=== PATIENT | male | born 2000 | race Caucasian/White ===

== ENCOUNTER 2021-03-11 20:54 | Emergency (ER) | payer BC ==
[~2021-03-11] VITALS: Ht 175 cm; Wt 81.0 kg
[2021-03-11 21:29] VITALS: BP 138/87
[2021-03-11] MEDS ORDERED: PRD20T PO (23:43)
[2021-03-11] MEDS ORDERED: MAGIC MOUTHWASH PO (23:43)
--- NOTE | 2021-03-11 23:44 | ED EENT ---
History of Present Illness General Chief Complaint: Oral/Throat Problems Stated Complaint: NECK PAIN Nursing Triage Note: Pt reports pressure around neck and throat and "weird bumps" on tongue for last 2 days. Pt also reports R ear pain. Source: patient History of Present Illness Date Seen by Provider: Mar 11, 2021 Time Seen by Provider: 23:19 Initial Comments PT ARRIVES VIA POV C/O PAIN UNDER RIGHT EAR AND UNDER CHIN ALSO C/O PAIN AND BUMPS TO BOTH SIDES OF TONGUE SYMPTOMS X 2 DAYS NO FEVER NO SORE THROAT NO SWELLING ANYWHERE NO PROBLEMS SWALLOWING OR TALKING--HAS BEEN EATING AND DRINKING NORMALLY NO CHANGE IN CHRONIC COUGH--STATES HE HAS ASTHMA. HAS INHALER BUT HAS NOT BEEN USING IT. DENIES SHORTNESS OF BREATH NO CHANGES IN CHRONIC "ALLERGY" SYMPTOMS--HAS NOT BEEN TAKING ANYTHING FOR ALLERGIES NO HEADACHE NO BODY ACHES NO LOSS OF TASTE OR SMELL NO NAUSEA/VOMITING/DIARRHEA NO CHANGE IN HEARING HAS NOT TAKEN ANYTHING FOR SYMPTOMS SYMPTOMS NO DIFFERENT TONIGHT HAS NOT SOUGHT CARE UNTIL TONIGHT NO HISTORY OF SIMILAR DENIES ANY NEW FOODS, DRINKS, ETC. DENIES SMOKING/CHEWING TOBACCO, DENIES ALCOHOL USE, DENIES DRUG USE HAS HAD COVID-19 VACCINE X 2 IN [place] WORKS AT [employer] IN [place] PCP: NONE--MOVED HERE A FEW MONTHS AGO FROM [place], [place] Allergies and Home Medications Home Medications Prednisone 20 Mg Tab, 40 MG PO DAILY Prescribed by: MARLENE LITTLE on 03/11/212342 [Magic Mouthwash] , 5 ML PO Q2 HRS Prescribed by: MARLENE LITTLE on 03/11/212342 Patient Home Medication List Home Medication List Reviewed: Yes Review of Systems Review of Systems Constitutional: no symptoms reported Eyes: No Symptoms Reported Ears: See HPI Nose: no symptoms reported Mouth: see HPI Throat: no symptoms reported Respiratory: no symptoms reported Cardiovascular: no symptoms reported Gastrointestinal: no symptoms reported Musculoskeletal: no symptoms reported Skin: no symptoms reported Neurological: No Symptoms Reported Hematologic/Lymphatic: No Symptoms Reported Immunological/Allergic: no symptoms reported Past Iuvactl-Tbqsyw-Pziurm Hx Patient Social History Tobacco Use?: No Smoking Status: Never a Smoker Smokeless Tobacco Frequency: Never a User Use of E-Cig and/or Vaping Jair: Never a User Substance use?: No Alcohol Use?: No Pt feels they are or have been: No Seasonal Allergies Seasonal Allergies: Yes Past Medical History Surgeries: No Respiratory: Yes Asthma Cardiac: No Neurological: No Genitourinary: No Gastrointestinal: Yes (GASTRITIS) Musculoskeletal: No Endocrine: No HEENT: No Cancer: No Psychosocial: No Integumentary: No Blood Disorders: No Physical Exam Vital Signs Vital Signs - First Documented 03/11/21 21:29 Temp 36.4 Pulse 69 Resp 18 B/P (MAP) 138/87 (104) Pulse Ox 98 O2 Delivery Room Air Height, Weight, BMI Height: '" Weight: lbs. oz. kg; 26.00 BMI Method: General Appearance: WD/WN, no apparent distress, other (DOES NOT APPEAR ILL OR TO BE IN ANY DISCOMFORT OR DISTRESS) Eyes: bilateral eye normal inspection, bilateral eye PERRL, bilateral eye EOMI Ears: bilateral ear auricle normal, bilateral ear canal normal, bilateral ear TM normal, bilateral ear other (NO MASTOID TENDERNESS OR SWELLING. ) Nose: normal inspection Mouth/Throat: No dental tenderness, No excessive drooling, No mandibular swelling, No maxillary swelling, No tongue swollen, No tonsillar swelling, No trismus, No uvula swelling, No voice changes; other (HAS SCALLOPPED TONGUE, WITH SOME MILD INFLAMMATION OF TASTE BUDS TO BILATERAL SIDES OF TONGUE. NO ABNORMALITIES OF SUBLINGUAL AREA. NO SWELLING OF TONGUE ITSELF. NO ULCERATIONS. 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 Referrals: NO,LOCAL PHYSICIAN (PCP/Family) Primary Care Physician Patient Instructions: Mouth Sores (DC) Add. Discharge Instructions: TYLENOL AND MOTRIN NEEDED FOR PAIN FOLLOW UP WITH DR OF CHOICE IN 2-3 DAYS IF NO BETTER All discharge instructions reviewed with patient and/or family. Voiced understanding. Scripts [Magic Mouthwash] No Conflict Check 5 ML PO Q2 HRS for Pain, #100 ML Prov: MARLENE LITTLE DO 03/11/21 Prednisone (Prednisone) 20 Mg Tab 40 MG PO DAILY, #6 TAB 0 Refills Prov: MARLENE LITTLE DO 03/11/21 MARLENE LITTLE DO Mar 11, 2021 23:43
== END 2021-03-11 23:51 | disposition home or self-care (01) ==
LOC: ER 20:59
DX: K14.0 Glossitis (principal); J45.909 Unspecified asthma, uncomplicated
CPT/HCPCS: 99282